=== PATIENT | male | born 1940 | race Caucasian/White ===

== ENCOUNTER 2021-01-24 04:58 | Observation (INO) ==
[2021-01-24] MEDS ORDERED: Isovue-370 500 ML BOTTLE IVP ONE ×2 (05:02→14:59)
[2021-01-24] MEDS ORDERED: Ondansetron 4 MG/2 ML VIAL IVP PRN ×2 (08:38→14:59)
[2021-01-24] MEDS ORDERED: *HR* Dextrose 50 % in Water (Vial) 50 ML VIAL IVP PRN ×2 (08:38→14:59)
[2021-01-24] MEDS ORDERED: Naloxone 0.4 MG/ML INJ IVP PRN ×2 (08:38→14:59)
[2021-01-24] MEDS ORDERED: Dextrose Gel 15 GM/37.5 ML TUBE PO PRN ×4 (08:38→14:59)
[2021-01-24] MEDS ORDERED: D5% in Water 1,000 ML IVC PRN ×2 (08:38→14:59)
[2021-01-24] MEDS ORDERED: Ringers Solution, Lactated 1,000 ML IVC SCH ×2 (08:45→14:59)
[2021-01-24] MEDS ORDERED: cefTRIAXone 1,000 MG in Water for inj. (sterile) 10 ML IVP SCH (11:00)
[2021-01-24] MEDS ORDERED: *HR* Propofol 200 MG/20 ML VIAL IVP ONE (11:23)
[2021-01-24] MEDS ORDERED: *HR* FentaNYL (PF) 100 MCG/2 ML VIAL ONE (11:23)
[2021-01-24] MEDS ORDERED: Lidocaine -MPF 2% 2 ML VIAL ONE (11:24)
[2021-01-24] MEDS ORDERED: Insulin LISPRO 300 UNITS/3 ML VIAL SUBQ SCH ×3 (12:00→21:00)
[2021-01-24 12:42] LABS: Influenza A PCR Negative (Negative); Influenza B PCR Negative (Negative); Resp. Syncytial Virus PCR Negative (Negative); SARS-CoV-2 by PCR (In House) Negative (Negative)
[2021-01-24] MEDS ORDERED: Ondansetron 4 MG/2 ML VIAL ONE (12:56)
[2021-01-24] MEDS ORDERED: *HR* Heparin 5,000 UNIT/ML VIAL SQ SCH (14:00)
[2021-01-24] MEDS: *HR* Heparin 5,000 UNIT/ML VIAL SQ SCH (22:25)
[2021-01-25] MEDS ORDERED: Acetaminophen IV 1,000 MG/100 ML BAG IVPB ONE (01:05)
[2021-01-25 02:24] LABS: Basophils % 0.2 %; Hematocrit 29.1 % (37.5-50.1); Hemoglobin 9.5 g/dL (12.9-16.9); Immature Granulocytes % 0.4 % (0-4); Lymphocytes # 0.2 K/mcL (0.6-4.6); Lymphocytes % 4.1 %; Mean Corpuscular HGB Conc 32.6 g/dL (31.6-35.5); Mean Corpuscular Volume 88.7 fL (83.0-100.0); Mean Platelet Volume 9.7 fL (9.4-12.4); Monocytes # 0.2 K/mcL (0.0-1.3); Monocytes % 3.5 %; Neutrophils # 4.2 K/mcL (1.6-8.9); Platelet Count 232 K/mcL (140-400); Red Blood Count 3.28 M/mcL (4.19-5.50); Red Cell Distribution Width 16.4 % (11.5-14.5); Segmented Neutrophils % 91.8 %; White Blood Count 4.6 K/mcL (4.3-11.1)
[2021-01-25 02:43] LABS: BUN/Creatinine Ratio 16 (6-26); Blood Urea Nitrogen 21 mg/dL (8-23); Calcium 8.4 mg/dL (8.6-10.3); Carbon Dioxide 18 mEq/L (23-29); Chloride 105 mEq/L (98-107); Glucose 176 mg/dL (70-105); Magnesium 1.7 mg/dL (1.6-2.6); Osmolality,Calculated 287 (280-300); Potassium 4.5 mEq/L (3.5-5.1); Sodium 135 mEq/L (136-145); eGFR For African Americans > 60 (> 60); eGFR For Non-African Americans 54 (> 60)
[2021-01-25 03:29] LABS: Platelet Estimate Normal (Normal)
[2021-01-25] MEDS: *HR* Heparin 5,000 UNIT/ML VIAL SQ SCH ×2 (06:46→13:08)
[2021-01-25] MEDS: Insulin LISPRO 300 UNITS/3 ML VIAL SUBQ SCH ×2 (08:45→13:00)
[2021-01-25] MEDS ORDERED: cefTRIAXone 1,000 MG in 0.9 % Sodium Chloride Mini Bag 100 ML IVPB SCH (09:00)
[2021-01-25] MEDS ORDERED: cefTRIAXone 1,000 MG in Water for inj. (sterile) 10 ML IVP SCH (09:00)
[2021-01-25 14:40] VITALS: BP 143/75
== END 2021-01-25 16:31 | disposition home or self-care (01) ==
LOC: 3ANU 04:58 → EMEROOARM 04:58 → SUATTDRO 08:02 → 3ANU 09:10
PROVIDERS: ADMIT Internal Medicine; ATTEND Family Medicine